=== PATIENT | male | born 1945 | race Caucasian/White ===

== ENCOUNTER → 2018-02-13 13:25 | Outpatient (CLI) | payer MEDICARE, OTHER, SELFPAY ==
[2018-02-13 13:56] LABS: Alanine Aminotransferase 29 IU/L (21-72); Albumin 4.6 g/dL (3.5-5.0); Albumin Globulin Ratio 1.8 (1.0-2.8); Alkaline Phosphatase 76 U/L (38-126); Aspartate Aminotransferase 28 IU/L (17-59); Bilirubin Total 0.5 mg/dL (0.2-1.3); Bilirubin Unconjugated 0.4 mg/dL (0.0-1.1); Globulin 2.6 g/dL (1.7-4.1); HEMOLYSIS < 15 (0-50); Total Protein 7.2 g/dL (6.3-8.2)
== END ==
PROVIDERS: Visit Provider Student in an Organized Health Care Education/Training Program
DX: Z79.899 Other long term (current) drug therapy (principal); E55.9 Vitamin D deficiency, unspecified
CPT/HCPCS: 36415; 80076; 82306

== ENCOUNTER → 2019-04-15 11:25 | Outpatient (CLI) | payer MEDICARE, OTHER, SELFPAY ==
--- NOTE | 2019-04-15 11:28 | DI.US.S_ITS ---
PROCEDURE: US RENAL COMPLETE INDICATIONS: URINARY RETENTION TECHNIQUE: Real-time scanning was performed of the kidneys and bladder, with image documentation. COMPARISON: None. FINDINGS: Kidneys: Kidneys are normal in size. Right kidney measures 10.7 cm long; left kidney measures 10.5 cm long. Right renal cortical thickness is 1.4 cm; left renal cortical thickness is 1.6 cm. Renal cortical echotexture is normal. No hydronephrosis or nephrolithiasis. No suspicious solid mass lesions. Simple right renal cyst measuring 20 mm. Bladder: Pre-void bladder volume is 320 mL. Post-void residual is 151 mL. Pre-void images demonstrate no intraluminal masses or stones. On pre-void images, bilateral ureteral jets are noted with color Doppler interrogation. (Of note, ureteral jets may not be detectable in up to 25% of cases due to insufficient differences in specific gravity between ureteral and bladder urine). Multiple bladder wall trabeculations. Miscellaneous: No free pelvic fluid. The prostate gland is prominent measuring about 4.8 cm in transverse diameter. IMPRESSION: 1. Right renal cyst; otherwise normal appearance of the kidneys bilaterally. 2. 151 cc postvoid residual in multiple bladder wall trabeculations suggesting chronic bladder outlet obstruction. Correlate clinically. Dictated by: Horacio MONTGOMERY Interpreted: Denise Santillan MD on 04/15/2019 at 16:52 Approved by: Denise Santillan M.D. on 04/15/2019 at 19:52
== END ==
PROVIDERS: PCP Student in an Organized Health Care Education/Training Program; Referring Provider Student in an Organized Health Care Education/Training Program; Visit Provider Student in an Organized Health Care Education/Training Program
DX: R35.1 Nocturia (principal); R97.20 Elevated prostate specific antigen [PSA]; N28.1 Cyst of kidney, acquired; N32.89 Other specified disorders of bladder
CPT/HCPCS: 76770

== ENCOUNTER → 2021-06-06 14:43 | Outpatient (CLI) | payer MEDICARE, OTHER, SELFPAY ==
--- NOTE | 2021-06-06 14:46 | DI.RAD.S_ITS ---
PROCEDURE: XR KNEE LT 3V INDICATIONS: Left knee pain and swelling TECHNIQUE: 3 views of the knee were acquired. COMPARISON: None. FINDINGS: Bones: No fractures or dislocations. No suspicious bony lesions. Soft tissues: Moderate suprapatellar joint effusion. Mild degenerative changes. No joint space narrowing. No suspicious soft tissue calcifications. IMPRESSION: 1. Mild degenerative changes. 2. Moderate suprapatellar joint effusion. Dictated by: Lico Barr M.D. on 06/06/2021 at 15:52 Approved by: Lico Barr M.D. on 06/06/2021 at 15:55
== END ==
PROVIDERS: PCP Student in an Organized Health Care Education/Training Program; Referring Provider Student in an Organized Health Care Education/Training Program; Visit Provider Student in an Organized Health Care Education/Training Program
DX: M25.562 Pain in left knee (principal); M25.462 Effusion, left knee
CPT/HCPCS: 73562

== ENCOUNTER → 2021-06-13 15:22 | Outpatient (CLI) | payer MEDICARE, OTHER, SELFPAY ==
--- NOTE | 2021-06-13 15:24 | DI.MRI.S_ITS ---
PROCEDURE: MR KNEE LT WO CON INDICATIONS: Left knee swelling following trauma TECHNIQUE: Noncontrast sagittal PD fast spin echo and T2 fast spin echo with fat saturation, sagittal 3-D FLASH with fat saturation; coronal T1 spin echo and PD fast spin echo with fat saturation, and axial PD fast spin echo with fat saturation through the knee. COMPARISON: [facility], CR, XR KNEE LT 3V, 06/06/2021, 14:52. FINDINGS: Image quality: Excellent. Anterior Cruciate Ligament: Mild mucoid degeneration of the anterior cruciate ligament. The bulk of the ligament fibers remain in continuity. Posterior Cruciate Ligament: Intact. Medial Collateral Ligament: Soft tissue edema surrounding the mid to proximal portions of the medial collateral ligament may be secondary to a low-grade sprain or reactive to the adjacent meniscal tear. Lateral Collateral Ligament: Edema is seen surrounding the proximal lateral collateral ligament with focal irregularity of ligament fibers, suspicious for a grade 2 sprain. Medial Meniscus: Complex tearing of the posterior horn and body of the medial meniscus with a horizontal oblique component at the posterior horn and body extending to the inner third of the tibial articular surface as well as a horizontal oblique component extending to the femoral articular surface at the meniscal body. A probable small mildly displaced meniscal fragment is seen in the medial tibial gutter (image 21 of series 5, image 5 series 7). Lateral Meniscus: There is horizontal oblique tearing of the posterior horn and body of the lateral meniscus extending to the free edge margin and tibial articular surface. Additionally, there appears to be tearing of the posterior root attachment. Medial and Lateral Tendons: The semimembranosus tendon insertions and meniscocapsular junction appear intact. Visualized portions of the pes anserinus tendons appear normal. No abnormal bursal fluid. The long and short heads of the biceps femoris tendon appear intact. The popliteus tendon appears intact. No signs of posterolateral corner injury. Iliotibial band appears normal. Anterior Structures: Mild patellar tendinosis. A nonedematous enthesophyte is seen at the quadriceps insertion. No patellar subluxation. No femoral trochlear dysplasia or ventral trochlear prominence. No edema in the infrapatellar fat pad. Bones: Mild nonspecific osseous edema is seen in the posterior medial tibial plateau, which may be reactive. No definite osseous contusion or fracture is seen. Medial Femorotibial Cartilage: At least high-grade partial thickness cartilage loss is seen in the posterior weight-bearing portion of the medial femoral condyle with small marginal osteophytes. Lateral Femorotibial Cartilage: There is also at least high-grade partial-thickness cartilage loss in the central to posterior weight-bearing portion of the lateral femorotibial compartment. Patellofemoral Cartilage: Mild partial-thickness cartilage irregularity is seen in the patellar cartilages. Focal high-grade cartilage loss is seen in the trochlear groove. Soft Tissues: Moderate joint effusion is present. There is a small to medium sized medial popliteal cyst. Mild soft tissue edema is seen surrounding the knee. IMPRESSION: 1. Complex tearing of the posterior horn and body of the medial meniscus with horizontal oblique component extending to the femoral and tibial articular surfaces. Possible displaced meniscal flap in the medial tibial gutter. 2. Complex tearing of the lateral meniscus with a horizontal oblique component at the posterior horn and body and high-grade partial or complete tearing of the posterior root attachment. 3. Grade 2 sprain of the proximal lateral collateral ligament. 4. Grade 1 sprain of the proximal to mid medial collateral ligament. 5. Mild mucoid degeneration of the anterior cruciate ligament without a discrete tear. 6. 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 7. Medium-sized joint effusion. Small to moderate medial popliteal cyst. Dictated by: Garrett Posada M.D. on 06/13/2021 at 20:43 Approved by: Garrett Posada M.D. on 06/13/2021 at 20:53
== END ==
PROVIDERS: PCP Student in an Organized Health Care Education/Training Program; Referring Provider Student in an Organized Health Care Education/Training Program; Visit Provider Student in an Organized Health Care Education/Training Program
DX: S83.232A Complex tear of medial meniscus, current injury, left knee, initial encounter (principal); S83.272A Complex tear of lateral meniscus, current injury, left knee, initial encounter; S83.412A Sprain of medial collateral ligament of left knee, initial encounter; S83.422A Sprain of lateral collateral ligament of left knee, initial encounter; M94.262 Chondromalacia, left knee; M25.462 Effusion, left knee; M71.22 Synovial cyst of popliteal space [Baker], left knee; M25.562 Pain in left knee
CPT/HCPCS: 73721

== ENCOUNTER → 2021-11-16 12:40 | Outpatient (CLI) | payer MEDICARE, OTHER, SELFPAY ==
--- NOTE | 2021-11-16 | DI.MRI.S_ITS ---
PROCEDURE: MR SHOULDER RT WO CON INDICATIONS: Pain in right shoulder TECHNIQUE: Noncontrast oblique coronal T2 fast spin echo with fat saturation, oblique sagittal T1 spin echo and T2 fast spin echo with fat saturation, axial T1 spin echo and T2 fast spin echo with fat saturation through the shoulder. COMPARISON: None. FINDINGS: Image quality: Excellent. Rotator cuff: There is a full-thickness tear of the supraspinatus tendon at its attachment on the greater tuberosity with approximately 1 centimeter of tendon retraction. Remaining rotator cuff tendons are intact. Bones and bursae: There is some mild AC joint degenerative change present. No significant glenohumeral joint degenerative change is seen. There is a small shoulder joint effusion extending into subacromial subdeltoid bursa. Capsule and soft tissues: There is a normal variant [place] complex noted anteriorly. There is a questionable tear involving the superior glenoid labrum. If further evaluation is clinically indicated MR arthrogram may be of further clinical value. Bicipital tendon remains that is normal position of the bicipital groove. There is some mild to moderate tenosynovitis of the long head biceps tendon. IMPRESSION: 1. Full-thickness tear of the supraspinatus tendon at its attachment on the greater tuberosity with 1 centimeter of tendon retraction 2. Questionable tear involving the anterior glenoid labrum. If further evaluation is clinically indicated MR arthrogram may be of further clinical value. 3. Mild to moderate tenosynovitis long head of the biceps tendon. 4. Mild AC joint degenerative change 5. Small shoulder joint effusion extending into the subacromial subdeltoid bursa 6. Anterior [place] complex. Dictated by: Pepe Samaniego M.D. on 11/16/2021 at 13:32 Approved by: Pepe Samnaiego M.D. on 11/16/2021 at 13:38
== END ==
PROVIDERS: PCP Student in an Organized Health Care Education/Training Program; Referring Provider Orthopaedic Surgery; Visit Provider Orthopaedic Surgery
DX: M75.121 Complete rotator cuff tear or rupture of right shoulder, not specified as traumatic (principal); M65.811 Other synovitis and tenosynovitis, right shoulder; M25.411 Effusion, right shoulder
CPT/HCPCS: 73221

== ENCOUNTER → 2022-01-29 14:30 | Outpatient (CLI) | payer MEDICARE, OTHER, SELFPAY ==
[2022-01-29 16:38] LABS: Cholesterol 173 mg/dL (140-199); HDL Cholesterol 56 mg/dL (40-60); LDL Cholesterol Calculated 97 mg/dL (<100); Triglycerides 100 mg/dL (35-150)
== END ==
PROVIDERS: PCP Student in an Organized Health Care Education/Training Program; Referring Provider Student in an Organized Health Care Education/Training Program; Visit Provider Student in an Organized Health Care Education/Training Program
DX: E78.2 Mixed hyperlipidemia (principal)
CPT/HCPCS: 36415; 80061

== ENCOUNTER → 2022-04-05 10:05 | Outpatient (CLI) | payer MEDICARE, OTHER, SELFPAY ==
--- NOTE | 2022-04-05 10:27 | DI.RAD.S_ITS ---
PROCEDURE: XR CHEST 2V INDICATIONS: cough, hemoptysis TECHNIQUE: 2 views of the chest were acquired. COMPARISON: None. FINDINGS: Surgical changes and devices: None. Lungs and pleura: Lungs are clear. No pleural effusions or pneumothorax. Mediastinum: Mediastinal contours are normal. Heart size is normal. Bones and chest wall: No suspicious bony abnormalities. Soft tissues appear unremarkable. IMPRESSION: No acute cardiopulmonary abnormality. Approved by: Garrett Posada M.D. on 04/05/2022 at 12:48
[2022-04-05 13:48] LABS: COVID-19 CEPHEID 4-PLEX PCR Negative (Negative); Influenza A - CEPHEID Flu A NEGATIVE (NEGATIVE); Influenza B - CEPHEID Flu B NEGATIVE (NEGATIVE); Respiratory Syncytial Virus Negative (Negative)
== END ==
PROVIDERS: PCP Student in an Organized Health Care Education/Training Program; Referring Provider Nurse Practitioner Family; Visit Provider Nurse Practitioner Family
DX: R05.9 Cough, unspecified (principal); J06.9 Acute upper respiratory infection, unspecified; R04.2 Hemoptysis
CPT/HCPCS: 0241U; 71046

== ENCOUNTER → 2023-05-23 08:35 | Outpatient (CLI) | payer MEDICARE, OTHER, SELFPAY ==
--- NOTE | 2023-05-23 08:36 | DI.RAD.S_ITS ---
PROCEDURE: FL UPPER GI SERIES INDICATIONS: eval swallowing difficulties COMPARISON: [facility], CR, XR CHEST 2V, 04/05/2022, 10:42. FINDINGS: KUB: Preprocedural packager or packer and weigher film demonstrates a normal bowel gas pattern. No suspicious abdominal calcifications. Visualized solid organ contours appear normal. Bony structures appear unremarkable. Right hip arthroplasty. Esophagus: Esophageal mucosa is normal on air-contrast views. On single-contrast views, there is mild esophageal dysmotility. This is demonstrable by intermittent tertiary contractions, intra esophageal reflux, and diminished peristaltic stripping in particularly in the prone sequence. There is also mild mass effect on the upper esophagus due to the aortic arch. The barium tablet was held briefly at this site. No strictures or diverticula. Small sliding-type hiatal hernia. Mild elicited gastroesophageal reflux. Stomach: The stomach is normally distensible, with normal rugal fold thickness. No mucosal masses or ulcers. Pylorus and duodenal bulb appear normal in morphology. Duodenal folds are normal in thickness as well. IMPRESSION: Mild esophageal dysmotility. Barium tablet briefly held at the upper esophagus due to mild mass effect from the aortic arch. Intermittent tertiary contractions and diminished peristaltic stripping particularly in the prone sequence. Small sliding-type hiatal hernia. Mild elicited gastroesophageal reflux. Exam findings were reviewed with the patient. Dictated by: Gabo Woodson M.D. on 05/23/2023 at 10:01 Approved by: Gabo Woodson M.D. on 05/23/2023 at 10:05
== END ==
PROVIDERS: PCP Family Medicine; Referring Provider Family Medicine; Visit Provider Family Medicine
DX: K22.4 Dyskinesia of esophagus (principal); K44.9 Diaphragmatic hernia without obstruction or gangrene; R13.10 Dysphagia, unspecified; K21.9 Gastro-esophageal reflux disease without esophagitis
CPT/HCPCS: 74240

== ENCOUNTER 2023-06-18 15:10 | Day surgery (SDC) | payer OTHER, MEDICARE, SELFPAY ==
--- NOTE | 2023-06-18 15:52 | P.OP.COLON_ITS ---
Operative Date/Time/Diagnoses Date of procedure: 06/18/23 Time of procedure: 16:46 Pre-op diagnosis: Colorectal screening Procedure & Clinicians Study performed: Screening colonoscopy Same procedure as scheduled: Yes Indications: Colorectal screening Surgeon: Reji Watts Procedure Notes Procedure in detail: The history and physical was performed/updated and the patient is ASA class is 2. The procedure was discussed in detail with the patient. Potential risks co mplications including infection, bleeding, missed diagnosis, perforation, need for surgery, and were explained. Their questions were answered and informed consent was obtained. Patient was brought to the procedure room and placed standard monitoring equipment. The patient's vital signs were monitored continuously throughout the entire procedure. Prior to starting time-out was performed. The patient was placed in the left lateral recumbent position. Procedural sedation was administered by anesthesia. Examination began with a thorough inspection of the perianal area there was no evidence of fissures, fistulae, external hemorrhoids or cutaneous malignancy. The colonoscopy scope was then placed into the anal canal and was advanced to the cecum, which was identified by the ileocecal valve, the appendiceal orifice and the confluence of the taenia. The scope was then slowly withdrawn examining colon thoroughly in all directions, irrigating it of any residual stool. The scope was retroflexed within the rectum The patient tolerated the procedure well. They will be discharged once criteria are met. The prep was of good/excellent quality. The withdrawl time was 6 minutes. FINDINGS * Unremarkable colonoscopy. Normal healthy colonic mucosa without masses polyps or inflammation. * Internal hemorrhoids Specimen(s): none sent Impression: Normal colonoscopy Post-procedure Plan for aftercare: No further colonoscopy necessary unless symptomatic Disposition: same day surgery
--- NOTE | 2023-06-18 15:52 | PM.HP.1 ---
History of Present Illness History of Present Illness Date Patient Seen: 06/18/23 Time Patient Seen: 16:17 Chief complaint: [facility] Narrative: 78-year-old man here for screening colonoscopy. Last colonoscopy 10 years ago normal. No family history of intestinal malignancy. No abdominal concerns today. 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) Surgical History Status post decompression of subacromial space S/P right rotator cuff repair History of right hip replacement (2014) History of arthroscopy of both knees S/P left rotator cuff repair (2008) Family History Father Status post carotid surgery CAD (coronary artery disease) COPD (chronic obstructive pulmonary disease) Mother COPD (chronic obstructive pulmonary disease) CAD (coronary artery disease) Bipolar disorder Social History Smoking Status: Never smoker Meds Home Medications and Allergies Home Medications Medication Instructions Recorded Confirmed Type atorvastatin 20 mg tablet (Lipitor) 20 mg PO HS #90 tabs 03/11/23 06/18/23 Rx tamsulosin 0.4 mg capsule 0.4 mg PO BEDTIME #90 caps 03/11/23 06/18/23 Rx Allergies Allergy/AdvReac Type Severity Reaction Status Date / Time No Known Drug Allergies Allergy Verified 06/18/23 15:48 Exam Narrative Exam Narrative: General adult man alert oriented no acute distress Chest nonlabored respiration Extremities warm well perfused Assessment & Plan Assessment & Plan narrative: The patient requires colorectal screening and colonoscopy is recommended. Technical details were discussed. Risks, benefits, alternatives explained. Risks including but not limited to myocardial infarction, aspiration, bleeding, pain, missed lesion, incomplete examination, need for further radiographic studies, intestinal injury, and need for major abdominal surgery were discussed. All questions were answered to their satisfaction, and they are in agreement with this plan.
[2023-06-18 15:54] VITALS: BP 120/77; PULSE 64; RESP 18; TEMP 36.6; O2SAT 99
[2023-06-18] MEDS: LACTATED RINGERS 1,000 ML 42 ML IV (16:03)
[2023-06-18 16:50] VITALS: BP 105/67; PULSE 71; RESP 15; TEMP 36.2; O2SAT 98
[2023-06-18 16:55] VITALS: BP 107/68; PULSE 70; RESP 16; O2SAT 99
[2023-06-18 17:00] VITALS: BP 120/68; PULSE 74; RESP 15; TEMP 36.4; O2SAT 100
[2023-06-18 17:07] VITALS: BP 126/75; PULSE 65; RESP 12; O2SAT 100
== END 2023-06-18 17:20 | disposition home or self-care (01) ==
PROVIDERS: PCP Family Medicine; Referring Provider Surgery; Visit Provider Surgery
PROC: 0DJD8ZZ Inspection of Lower Intestinal Tract, Via Natural or Artificial Opening Endoscopic (ICD-10-PCS; CPT 45378; principal; 2023-06-18 15:00)
DX: Z12.11 Encounter for screening for malignant neoplasm of colon (principal); K64.8 Other hemorrhoids
CPT/HCPCS: 45378; J2250; J2704

== ENCOUNTER → 2024-04-21 09:17 | Outpatient (CLI) | payer MEDICARE, OTHER, SELFPAY ==
[2024-04-21 09:46] LABS: Add Manual Diff / Slide Review NO; Basophils Absolute Auto 100 /uL (0-100); Basophils Percent Auto 0.9 % (0-2); Eosinophils Absolute Auto 200 /uL (0-450); Eosinophils Percent Auto 3.6 % (2-4); Hematocrit 45.8 % (41-53); Hemoglobin 15.5 g/dL (13.5-17.5); Lymphocytes Absolute Auto 2700 /uL (1100-4500); Lymphocytes Percent Auto 39.2 % (25-40); Mean Corpuscular HGB Conc 33.7 % (30-36); Mean Corpuscular Hemoglobin 32.6 PG (26-34); Mean Corpuscular Volume 96.6 fL (80-100); Monocytes Absolute Auto 600 /uL (0-900); Monocytes Percent Auto 8.3 % (3-14); Neutrophils Absolute Auto 3300 /uL (1500-7000); Platelet Count 208 X10^3/uL (150-400); Red Blood Cell Count 4.75 X10^6/uL (4.5-5.9); Red Cell Distribution Width 13.5 % (11.6-14.8); White Blood Cell Count 6.9 X10^3/uL (4.5-11.0)
[2024-04-21 10:06] LABS: Alanine Aminotransferase 19 IU/L (<50); Albumin 4.5 g/dL (3.5-5.0); Albumin Globulin Ratio 1.7 (1.0-2.8); Alkaline Phosphatase 68 U/L (38-126); Aspartate Aminotransferase 29 IU/L (17-59); BUN Creatinine Ratio 23.5 (6-22); Bilirubin Total 0.8 mg/dL (0.2-1.3); Blood Urea Nitrogen 23 mg/dL (9-20); Calcium 9.6 mg/dL (8.4-10.2); Carbon Dioxide 26 mmol/L (22-32); Chloride 103 mmol/L (98-107); Cholesterol 191 mg/dL (140-199); Estimated Glomerular Filt Rate > 60 mL/min (>60); Globulin 2.6 g/dL (1.7-4.1); Glucose 93 mg/dL (80-110); HDL Cholesterol 77 mg/dL (40-60); HEMOLYSIS < 15 (0-50); LDL Cholesterol Calculated 100 mg/dL (<100); Potassium 4.2 mmol/L (3.4-5.1); Sodium 137 mmol/L (137-145); Total Protein 7.1 g/dL (6.3-8.2); Triglycerides 70 mg/dL (35-150)
[2024-04-21 10:37] LABS: Prostate Specific Antigen Scrn 3.93 ng/mL (0.1-4.0); TSH w/ Reflex to FT4 2.74 uIU/mL (0.47-4.68)
== END ==
PROVIDERS: PCP Family Medicine; Referring Provider Family Medicine; Visit Provider Family Medicine
DX: Z00.00 Encounter for general adult medical examination without abnormal findings (principal); E78.5 Hyperlipidemia, unspecified; Z12.5 Encounter for screening for malignant neoplasm of prostate; N40.0 Benign prostatic hyperplasia without lower urinary tract symptoms
CPT/HCPCS: 36415; 80053; 80061; 84443; 85025; G0103

== ENCOUNTER 2024-06-05 15:22 | Emergency (ER) | payer MEDICARE, OTHER, SELFPAY ==
[2024-06-05] VITALS (10 sets, daily range): BP systolic 101–129; BP diastolic 58–72; PULSE 66–80; RESP 16–26; TEMP 36.1; O2SAT 95–99; BMI 24.3
--- NOTE | 2024-06-05 | DI.CT.S_ITS ---
PROCEDURE: CT TRAUMA CHEST ABDOMEN PELVIS INDICATIONS: ski accident, known acetabular fx TECHNIQUE: After the administration of intravenous contrast, 5 mm thick sections acquired from the lung apices to the symphysis. 2.5 mm thick coronal and sagittal reformats were acquired. Additional 7 mm thick coronal maximum intensity projection (MIP) reformats acquired through the lungs. Optional 10-minute delayed imaging may be performed from the kidneys to the bladder. For radiation dose reduction, the following was used: automated exposure control, adjustment of mA and/or kV according to patient size. COMPARISON: [facility], CT, CT PEL WO CON, 06/05/2024, 18:08. FINDINGS: Image quality: Diagnostic. CHEST: Lower Neck: No enlarged lymph nodes. Thyroid: No thyroid nodules which require sonographic evaluation. Axillae: No enlarged lymph nodes. Chest Wall: No subcutaneous gas. Lungs and Pleura: No pulmonary contusions or lacerations. No acute airspace opacities. No pneumothorax or hemothorax. Incidental tiny bilateral upper lobe nodules. No suspicious lung mass. Mediastinum: No mediastinal hematomas. Heart size is normal. No pericardial effusion. Thoracic aorta and pulmonary arteries demonstrate normal size and enhancement. No mediastinal or hilar adenopathy. Esophagus is normal in caliber. Small hiatal hernia. ABDOMEN: Liver: No lacerations. Gallbladder: No wall thickening or calcified stones. Biliary ducts: No biliary dilation. Pancreas: Homogenous enhancement. No lacerations or peripancreatic fluid. Spleen: Homogenous enhancement without laceration or hematoma. Adrenal Glands: Symmetric enhancement. Kidneys and Ureters: Symmetric enhancement. No hydronephrosis. No solid mass. No complex renal cystic lesion which requires follow up. Stomach and Bowel: Decompressed stomach and small bowel loops. Normal quantity of air and stool in the colon. Peritoneum: No free fluid or free air in the upper abdomen. Ventral Wall: No hernia. Abdominal Nodes: No retroperitoneal or mesenteric adenopathy by size criteria. Vessels: The abdominal aorta, IVC, and portal vein are of normal caliber. PELVIS: Pelvic Organs: Moderate prostatomegaly. Bladder: Intact urinary bladder without significant wall thickening Pelvic Nodes: No enlarged lymph nodes. Miscellaneous: Known right acetabular fracture. There is prominent fat stranding in the anterior right pelvis displacing the urinary bladder to the left, fairly stable in extent compared to the exam from 2 hours prior. There is also slight leftward mass effect on seminal vesicles and rectum. The right external iliac contour, previously questioned, appears normal. Bones: Right hip prosthesis. Known periprosthetic right acetabular fracture, described previously. Right inferior pubic ramus fracture. No definite acute vertebral body fractures. Chronic vertebral body fractures of T12 and L4. No visible rib fractures. IMPRESSION: No evidence of chest trauma. No CT evidence of acute solid organ injury. Known right pelvic hematoma secondary to the right acetabular and inferior pubic ramus fracture. No other intrapelvic trauma. Dictated by: Denise Santillan M.D. on 06/05/2024 at 21:41 Approved by: Denise Santillan M.D. on 06/05/2024 at 21:56
--- NOTE | 2024-06-05 15:50 | DI.RAD.S_ITS ---
PROCEDURE: XR HIP W PEL IF DONE RT 2V INDICATIONS: fall TECHNIQUE: AP pelvis with lateral view(s) of the right hip(s). COMPARISON: None. FINDINGS: Bones: There is curvilinear calcification overlying the prosthetic acetabulum. Hardware appears intact. In addition, irregular opacities are present overlying the confluence the superior and inferior right pubic rami laterally. Soft tissues: The visualized bowel gas pattern is normal. No suspicious soft tissue calcifications. IMPRESSION: Suspicion for acetabular fracture on the right both superior and medial. Prosthesis appears intact. However, CT is recommended. Dictated by: Kya White M.D. on 06/05/2024 at 16:43 Approved by: Kya White M.D. on 06/05/2024 at 16:44
--- NOTE | 2024-06-05 17:23 | ED_ITS ---
HPI - Extremity Injury (Lower) General Chief Complaint: Extremity Injury, Lower Stated Complaint: fell skiing, r hip pain artificial hip Time Seen by Provider: 06/05/24 17:23 Source: patient Mode of arrival: Family Vehicle Related Data Previous Rx's Medication Instructions Recorded atorvastatin 20 mg tablet (Lipitor) 20 mg PO HS #90 tabs 04/16/24 tamsulosin 0.4 mg capsule 0.4 mg PO BID #180 caps 04/17/24 Allergies Allergy/AdvReac Type Severity Reaction Status Date / Time No Known Drug Allergies Allergy Verified 04/21/24 08:40 Patient History Medical History Dysphagia Left shoulder strain Medicare annual wellness visit, subsequent BPH (benign prostatic hyperplasia) Encounter for well adult exam without abnormal findings Skin abnormalities Nontraumatic complete tear of right rotator cuff Bicipital tendinitis, right shoulder Vertigo Hyperlipidemia, unspecified Osteoarthritis [place] of foot (12/24/14) 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) Surgical History Status post decompression of subacromial space S/P right rotator cuff repair History of right hip replacement (2014) History of arthroscopy of both knees S/P left rotator cuff repair (2008) Family History Father Status post carotid surgery CAD (coronary artery disease) COPD (chronic obstructive pulmonary disease) Mother COPD (chronic obstructive pulmonary disease) CAD (coronary artery disease) Bipolar disorder Social History (Updated 04/21/24 @ 08:43 by Jazmín Bray MA) marital status: number of children: 2 household members: spouse lives independently: Yes caregiver/support person: No housing: house pets and animals: No education level: college occupational status: other current occupational exposures/hazards: No Previous occupational history: Retired 06/01/2009 special kim needs: No travel history: over 6 months ago leisure activities: sports, exercise, clubs, reading and volunteer work other: Sailing seatbelt use: always helmet use: Yes water heater temp set < 120 deg: Yes working smoke detector in home: Yes fire extinguisher in home: Yes carbon monox detector in home: No firearms in home: No do you feel safe at home: Yes second hand exposure: No alcohol intake: current substance use type: prescription drug during the past year weight has: remained stable well-balanced diet: daily or most days daily servings fruits/ve-4 caffeine: Yes eating out: 1-3 times/week Type(s) of exercise: walking, bicycling, regular exercise and weight lifting frequency: 3-4 times per week duration: 60-90 minutes/day Smoking Status: Never smoker alcohol intake frequency: a few times a week Alcohol type: wine Exam Initial Vital Signs Initial Vital Signs: Vital Signs Temperature 97.0 F L 06/05/24 15:41 Pulse Rate 72 06/05/24 15:41 Respiratory Rate 18 06/05/24 15:41 Blood Pressure 111/72 06/05/24 15:41 Pulse Oximetry 99 06/05/24 15:41 Oxygen Delivery Method Room Air 06/05/24 15:41 Course Orders Ordered: ED Orders 06/05/24 15:50 XR hip w pel if done RT 2V Stat Vital Signs Vital signs: Vital Signs - 8 hr 06/05/24 15:41 Temperature 97.0 F L Pulse Rate 72 Respiratory Rate 18 Blood Pressure 111/72 Pulse Oximetry 99 Oxygen Delivery Method Room Air Discharge Plan Departure Prescriptions: No Action atorvastatin [Lipitor] 20 mg tablet 20 mg PO HS Qty: 90 3RF tamsulosin 0.4 mg capsule 0.4 mg PO BID Qty: 180 3RF Referrals: Glynn Tejeda DO [Primary Care Provider] -
--- NOTE | 2024-06-05 17:25 | DI.CT.S_ITS ---
PROCEDURE: CT PEL WO CON INDICATIONS: fall while skiing. right hip pain TECHNIQUE: Noncontrast 3 mm axial sections acquired through the bony pelvis, with coronal and sagittal reformatting. COMPARISON: [facility], CR, XR HIP W PEL IF DONE RT 2V, 06/05/2024, 16:13. FINDINGS: Image quality: Excellent. Bones: Acute, both column fracture of the right acetabulum involving the anterior/posterior carter, right ischiopubic root, and right superior pubic ramus (06[birth year]14-39). Acute, minimally displaced fracture of the right inferior pubic ramus (/56). Joints: Left hip joint is preserved. Mild lower lumbar osteoarthrosis. Status post right hip total arthroplasty without other hardware complication Muscles: Overall muscle bulk is preserved. High-density material within the right proximal adductor and obturator internus musculature. Vessels: No aneurysmal dilatation of the visualized arterial vasculature, although the contour of the right external iliac artery is not well identified, due to the lack of intravenous contrast. Lymph nodes: No lower retroperitoneal or bilateral inguinal lymphadenopathy. Other soft tissues: High density material is present in the space of Retzius anterior to the urinary bladder (3/40), along the presacral region (3/45), and along the right lower paracolic gutter (3/23-52). IMPRESSION: 1. Acute both column fracture of the right acetabulum. 2. Acute minimally displaced fracture of the right inferior pubic ramus. 3. Likely intramuscular hematomas in the right proximal adductor and obturator internus musculature with lower retroperitoneal extension. 4. Presacral hemorrhage, which may be secondary to posterior extension of the hemorrhage in the anterior compartments versus occult sacral fractures. 5. Indistinct contour of the right external iliac artery, insufficiently evaluated in the absence of intravenous contrast, and may represent vascular injury. Dictated by: Preet Nash M.D. on 06/05/2024 at 19:15 Approved by: Preet Nash M.D. on 06/05/2024 at 19:36
--- NOTE | 2024-06-05 17:32 | DI.CT.S_ITS ---
PROCEDURE: CT HEAD/BRAIN WO CON INDICATIONS: fall TECHNIQUE: Noncontrast 4.5 mm thick angled axial sections acquired from the foramen magnum to the vertex, with coronal and sagittal reformats. For radiation dose reduction, the following was used: automated exposure control, adjustment of mA and/or kV according to patient size. COMPARISON: None. FINDINGS: Image quality: Diagnostic. CSF spaces: Basal cisterns are patent. No extra-axial fluid collections. The ventricles are symmetric in size and shape. Brain: No intracranial bleeds or masses. There is cerebral volume loss for age, with resultant ventricular and sulcal prominence. There are periventricular and deep white matter chronic small vessel ischemic changes. There is intracranial internal carotid artery atherosclerosis. Skull and face: Calvarium and visualized facial bones appear intact, without suspicious lesions. Sinuses: Visualized sinuses and mastoids are clear. IMPRESSION: No acute intracranial pathology. Dictated by: Hreb Nugent M.D. on 06/05/2024 at 18:58 Approved by: Herb Nugent M.D. on 06/05/2024 at 18:59
--- NOTE | 2024-06-05 17:35 | PC.NURSE ---
Went to inform patient that he had an xray that needed future investigation with a CT. I noticed that his glasses were broken on the right. He reported that he hit his head in the fall but was wearing a helmet. Dr. Landa aware. CT pelvis and head ordered. repeat vital signs stable. dr landa aware
--- NOTE | 2024-06-05 20:15 | DI.CT.S_ITS ---
PROCEDURE: CT CERVICAL SPINE WO CON INDICATIONS: skiing accident TECHNIQUE: Noncontrast 3 mm thick sections acquired from the skull base to the T4 level. Sagittal and coronal reformats were then constructed. For radiation dose reduction, the following was used: automated exposure control, adjustment of mA and/or kV according to patient size. COMPARISON: None. FINDINGS: Image quality: Excellent. Bones: The craniocervical junction is intact. Mild degenerative space loss and spurring at the atlantodental interval. Disc height loss C5-6 and C6-7. Trace anterolisthesis T1-2. Mild posterior disc osteophyte, particularly at C5-6 and C6-7. No cervical vertebral body fractures or pathologic subluxation. Soft tissues: Prevertebral soft tissues are normal in thickness. No paravertebral hematomas. No apical pneumothoraces. IMPRESSION: No CT evidence of acute cervical spine fracture. Dictated by: Denise Santillan M.D. on 06/05/2024 at 21:37 Approved by: Denise Santillan M.D. on 06/05/2024 at 21:41
[2024-06-05 20:25] LABS: Add Manual Diff / Slide Review NO; Basophils Absolute Auto 0 /uL (0-100); Basophils Percent Auto 0.3 % (0-2); Eosinophils Absolute Auto 0 /uL (0-450); Eosinophils Percent Auto 0.3 % (2-4); Hematocrit 42.2 % (41-53); Hemoglobin 14.4 g/dL (13.5-17.5); Lymphocytes Absolute Auto 1800 /uL (1100-4500); Lymphocytes Percent Auto 16.8 % (25-40); Mean Corpuscular HGB Conc 34.3 % (30-36); Mean Corpuscular Hemoglobin 32.9 PG (26-34); Monocytes Absolute Auto 600 /uL (0-900); Monocytes Percent Auto 5.2 % (3-14); Neutrophils Absolute Auto 8400 /uL (1500-7000); Neutrophils Percent Auto 77.4 % (50-75); Platelet Count 154 X10^3/uL (150-400); Red Blood Cell Count 4.39 X10^6/uL (4.5-5.9); Red Cell Distribution Width 13.2 % (11.6-14.8); White Blood Cell Count 10.9 X10^3/uL (4.5-11.0)
[2024-06-05 20:43] LABS: INR 1.1 (0.9-1.3)
[2024-06-05 20:46] LABS: PTT Partial Thromboplastin Tim 31 SECONDS (25.1-36.5)
--- NOTE | 2024-06-05 20:53 | ED_ITS ---
HPI - Fall General Chief Complaint: Trauma Stated Complaint: fell skiing, r hip pain artificial hip Time Seen by Provider: 06/05/24 17:23 Source: patient, family, RN notes reviewed and old records reviewed Mode of arrival: Family Vehicle Limitations: no limitations History of Present Illness HPI Narrative: 79-year-old male he takes an aspirin every other day, atorvastatin and tamsulosin. Patient was skiing at [place] earlier today at about 130 in the afternoon he caught an edge or ended up falling onto his right side. He landed pretty hard on his right hip. Has had pain in that area denies any other real injuries. He tried to ski again and had difficulty and pain with trying to turn in his had difficulty trying to weightbear. He states he sure if he hit his head he was helmeted he wears his glasses underneath his goggles and thinks his helmet push the goggles into his glasses because the glasses are cracked at the frame on 1 side. He denies any headache or neck pain no back pain, no chest pain or shortness of breath. Denies any other GI or urinary symptoms. Denies any numbness or tingling. He states when they removed his ski boat at the medical hot at [place] he states he got really nauseated and felt lightheaded but has not had any additional symptoms. Patient denies any allergies to medication. He has had higher prior right hip replacement as well as bilateral shoulder repair. Related Data Previous Rx's Medication Instructions Recorded atorvastatin 20 mg tablet (Lipitor) 20 mg PO HS #90 tabs 04/16/24 tamsulosin 0.4 mg capsule 0.4 mg PO BID #180 caps 04/17/24 Allergies Allergy/AdvReac Type Severity Reaction Status Date / Time No Known Drug Allergies Allergy Verified 04/21/24 08:40 Review of Systems Review of Systems ROS Unobtainable: All systems reviewed & are unremarkable except as noted in HPI and below Patient History Medical History Dysphagia Left shoulder strain Medicare annual wellness visit, subsequent BPH (benign prostatic hyperplasia) Encounter for well adult exam without abnormal findings Skin abnormalities Nontraumatic complete tear of right rotator cuff Bicipital tendinitis, right shoulder Vertigo Hyperlipidemia, unspecified Osteoarthritis [place] of foot (12/24/14) 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) Surgical History Status post decompression of subacromial space S/P right rotator cuff repair History of right hip replacement (2014) History of arthroscopy of both knees S/P left rotator cuff repair (2008) Family History Father Status post carotid surgery CAD (coronary artery disease) COPD (chronic obstructive pulmonary disease) Mother COPD (chronic obstructive pulmonary disease) CAD (coronary artery disease) Bipolar disorder Social History marital status: number of children: 2 household members: spouse lives independently: Yes caregiver/support person: No housing: house pets and animals: No education level: college occupational status: other current occupational exposures/hazards: No Previous occupational history: Retired 06/01/2009 special kim needs: No travel history: over 6 months ago leisure activities: sports, exercise, clubs, reading and volunteer work other: Sailing seatbelt use: always helmet use: Yes water heater temp set < 120 deg: Yes working smoke detector in home: Yes fire extinguisher in home: Yes carbon monox detector in home: No firearms in home: No do you feel safe at home: Yes Smoking Status: Never smoker second hand exposure: No alcohol intake: current substance use type: prescription drug during the past year weight has: remained stable well-balanced diet: daily or most days daily servings fruits/ve-4 caffeine: Yes eating out: 1-3 times/week Type(s) of exercise: walking, bicycling, regular exercise and weight lifting frequency: 3-4 times per week duration: 60-90 minutes/day Smoking Status: Never smoker alcohol intake frequency: a few times a week Alcohol type: wine Exam Narrative Exam Narrative: GEN: Patient appears in mild distress. HEAD: No evidence of trauma, no raccoon/Griffin sign. NECK: Nontender, painless range of motion, trachea midline [Negative/positive] Nexus criteria, no med line tenderness, distracting injury, altered mental status, neuro deficit, recent EtOH. EYES: PERRLA, EOMI ENT: External inspection normal, trachea is midline, TM's are normal no hemotypanum, Nares are clear, no septal hematoma, no dental or oral injury, airway is normal and with normal occlusion, No bony tenderness RESP: Chest is nontender and has symmetric movement, no ecchymosis, breath sounds are normal no crackles, wheezes or rales CVS: Heart sounds are normal, no murmur noted, No JVD. ABG/GI: Nontender, soft, normal bowel sounds, no distention, no organomegaly, pelvic rock is negative NEURO: Oriented AOx3, neuro is grossly intact, sensation and motor is normal all 4 extremities moving, cranial nerves II through XII are intact, GCS is 15 PSYCH: Normal mood and affect SKIN: Intact, warm and dry, no crepitus and without decubitus BACK: No CVA tenderness, no vertebral tenderness, no step-off's, no crepitus EXT: Patient has some mild right hip tenderness. He was most comfortable slightly flexed at the hip with a pillow underneath his knee. 2+ pulses bilateral lower extremities. He has pain with any tried of lifting of his leg. He can dorsiflex and plantar flex without issue. No ecchymosis appreciated of the hip or pelvis. Left hip is nontender. No tenderness throughout the extremities. Initial Vital Signs Initial Vital Signs: Vital Signs Temperature 97.0 F L 06/05/24 15:41 Pulse Rate 72 06/05/24 15:41 Respiratory Rate 18 06/05/24 15:41 Blood Pressure 111/72 06/05/24 15:41 Pulse Oximetry 99 06/05/24 15:41 Oxygen Delivery Method Room Air 06/05/24 15:41 Course Orders Ordered: Discontinued Medications Acetaminophen (Acetaminophen 325 Mg Tablet) 975 mg PO NOW ONE Stop: 06/05/24 21:29 Last Admin: 06/05/24 21:35 Dose: 975 mg Documented By: SACHI Diphtheria/Tetanus/Acell Pertussis (Tet,Diph,Pertuss(Acell),Vac/Pf 0.5 Ml Syringe) 0.5 ml IM .ONCE ONE Stop: 06/05/24 20:16 Last Admin: 06/05/24 21:34 Dose: 0.5 ml Documented By: SACHI Morphine Sulfate (Morphine 4 Mg/Ml Inj) 4 mg IV NOW ONE Stop: 06/05/24 23:28 Last Admin: 06/05/24 23:30 Dose: 4 mg Documented By: SACHI Ondansetron HCl (Ondansetron 4 Mg/2 Ml Inj) 4 mg IV NOW ONE Stop: 06/05/24 23:29 Last Admin: 06/05/24 23:30 Dose: 4 mg Documented By: SACHI Vital Signs Vital signs: Vital Signs - 8 hr 06/05/24 15:41 06/05/24 17:38 06/05/24 20:17 Temperature 97.0 F L Pulse Rate 72 66 74 Respiratory Rate 18 16 26 H Blood Pressure 111/72 101/62 Pulse Oximetry 99 98 99 Oxygen Delivery Method Room Air Room Air 06/05/24 20:30 06/05/24 20:30 06/05/24 21:00 Temperature Pulse Rate 73 80 Respiratory Rate 20 20 Blood Pressure 129/69 Pulse Oximetry 98 97 Oxygen Delivery Method Room Air MDM - Fall Lab Data 06/05/24 20:16 06/05/24 20:16 Labs: Lab Results 06/05/24 Range/Units 20:16 WBC 10.9 (4.5-11.0) X10^3/uL RBC 4.39 L (4.5-5.9) X10^6/uL Hgb 14.4 (13.5-17.5) g/dL Hct 42.2 (41-53) % MCV 96.0 (80-100) fL MCH 32.9 (26-34) PG MCHC 34.3 (30-36) % RDW 13.2 (11.6-14.8) % Plt Count 154 (150-400) X10^3/uL Neut % (Auto) 77.4 H (50-75) % Lymph % (Auto) 16.8 L (25-40) % Sabine % (Auto) 5.2 (3-14) % Eos % (Auto) 0.3 L (2-4) % Baso % (Auto) 0.3 (0-2) % Neut # (Auto) 8400 H (7492-6831) /uL Lymph # (Auto) 1800 (6731-7361) /uL Sabine # (Auto) 600 (0-900) /uL Eos # (Auto) 0 (0-450) /uL Baso # (Auto) 0 (0-100) /uL PT 12.0 (9.4-12.5) SECONDS INR 1.1 (0.9-1.3) APTT 31 (25.1-36.5) SECONDS Sodium 133 L (137-145) mmol/L Potassium 3.9 (3.4-5.1) mmol/L Chloride 104 (98-107) mmol/L Carbon Dioxide 22 (22-32) mmol/L BUN 22 H (9-20) mg/dL Creatinine 0.94 (0.66-1.25) mg/dL Estimated GFR > 60 (>60) mL/min BUN/Creatinine Ratio 23.4 H (6-22) Glucose 109 (80-110) mg/dL Lactate 1.1 (0.7-2.1) mmol/L Calcium 9.5 (8.4-10.2) mg/dL Total Bilirubin 1.7 H (0.2-1.3) mg/dL AST 33 (17-59) IU/L ALT 25 (<50) IU/L Alkaline Phosphatase 64 (38-126) U/L Total Protein 7.2 (6.3-8.2) g/dL Albumin 4.3 (3.5-5.0) g/dL Globulin 2.9 (1.7-4.1) g/dL Albumin/Globulin Ratio 1.5 (1.0-2.8) Lipase 97 (23-300) U/L Ethyl Alcohol < 10 ( - 10) mg/dL Blood Type O Positive Antibody Screen Negative [facility] Narrative Medical decision making narrative: Head CT was negative Hip x-ray showed suspicion for acetabular fracture on right superior and medial prosthesis appears intact CT is recommended.. CT pelvis shows acute both column fracture of the right acetabulum acute minimally displaced fracture right inferior pubic rami, likely intramuscular hematomas right proximal adductor and obturator internus musculature with lower retroperitoneal extension. Presacral hemorrhage which maybe secondary to posterior extension of the hemorrhage of the anterior compartments versus occult sacral fracture. Indistinct contour of the right external iliac artery insufficiency evaluated absence of intravenous contrast may represent vascular injury. CT chest abdomen pelvis trauma protocol shows no evidence of chest trauma no evidence of acute solid organ injury known right pelvic hematoma secondary to right acetabulum inferior pubic rami fracture no other intrapelvic trauma. I prominent fat stranding displacing urinary bladder to the left is stable to extent compared to exam from 2 hours prior also slight leftward mass effect and seminal vesicles and rectum. Right external iliac contour previously questioned appears normal. CT cervical spine shows no evidence of acute cervical spine fracture. Patient was seen by myself earlier imaging has been ordered by the provider. Added on C-spine as well as chest abdomen pelvis trauma scan. Labs were also included patient has been hemodynamically stable. Labs show white count of 10 hemoglobin of 14 platelets of 154. Coags are negative, chemistries show sodium 133 BUN 22 otherwise normal electrolytes glucose of 109 bilirubin is 1.7 LFTs are otherwise negative. ETOH is negative. Patient had tetanus up-to-date acid, acetaminophen, has a dose of narcotic pain medication prior to transport. Spoke with Dr. Rios, orthopedic surgery at 8:56 p.m. she recommends transfer for the right acetabulum and pelvic fracture to [facility]. Spoke with coordinator @ 2111 Spoke with [facility] ED attending Dr. Chaudhry accepts for transfer we will call back with any changes on cervical CT, chest abdomen pelvis with contrast. At this time plan for ALS ground unless there are other pertinent findings on imaging. Discharge Plan Departure Patient Disposition: [facility] Clinical Impression: Acetabulum fracture, right, Closed fracture of right inferior pubic ramus Prescriptions: No Action atorvastatin [Lipitor] 20 mg tablet 20 mg PO HS Qty: 90 3RF tamsulosin 0.4 mg capsule 0.4 mg PO BID Qty: 180 3RF Referrals: Glynn Tejeda DO [Primary Care Provider] -
[2024-06-05 20:59] LABS: Lactate (Lactic Acid) 1.1 mmol/L (0.7-2.1)
[2024-06-05 21:01] LABS: Alanine Aminotransferase 25 IU/L (<50); Albumin 4.3 g/dL (3.5-5.0); Albumin Globulin Ratio 1.5 (1.0-2.8); Alkaline Phosphatase 64 U/L (38-126); Aspartate Aminotransferase 33 IU/L (17-59); BUN Creatinine Ratio 23.4 (6-22); Bilirubin Total 1.7 mg/dL (0.2-1.3); Blood Urea Nitrogen 22 mg/dL (9-20); Calcium 9.5 mg/dL (8.4-10.2); Carbon Dioxide 22 mmol/L (22-32); Chloride 104 mmol/L (98-107); Estimated Glomerular Filt Rate > 60 mL/min (>60); Ethanol (ETOH) < 10 mg/dL; Globulin 2.9 g/dL (1.7-4.1); Glucose 109 mg/dL (80-110); HEMOLYSIS 20 (0-50); Lipase 97 U/L (23-300); Potassium 3.9 mmol/L (3.4-5.1); Sodium 133 mmol/L (137-145); Total Protein 7.2 g/dL (6.3-8.2)
[2024-06-05] MEDS: TET,DIPH,PERTUSS(ACELL),VAC/PF 0.5 ML SYRINGE IM (21:34)
[2024-06-05] MEDS: ACETAMINOPHEN 325 MG TABLET 975 MG PO (21:35)
[2024-06-05] MEDS: ONDANSETRON 4 MG/2 ML INJ IV (23:30)
[2024-06-05] MEDS: MORPHINE 4 MG/ML INJ IV (23:30)
== END 2024-06-05 23:30 | disposition short-term general hospital (02) ==
PROVIDERS: Emergency Provider Emergency Medicine; PCP Family Medicine
DX: S32.431A Displaced fracture of anterior column [iliopubic] of right acetabulum, initial encounter for closed fracture (principal); S32.511A Fracture of superior rim of right pubis, initial encounter for closed fracture; V00.321A Fall from snow-skis, initial encounter; Y93.23 Activity, snow (alpine) (downhill) skiing, snowboarding, sledding, tobogganing and snow tubing; Z96.641 Presence of right artificial hip joint; Z23 Encounter for immunization; R42 Dizziness and giddiness; R11.0 Nausea; Z79.82 Long term (current) use of aspirin
CPT/HCPCS: 36415; 70450; 71275; 72125; 72192; 73502; 74177; 80053; 80320; 83605; 83690; 85025; 85610; 85730; 86850; 86900; 86901; 90471; 96374; 96375; 99285; 90715; J2270; J2405; Q9967